=== PATIENT | male | born 1995 | race African-American/Black ===

== ENCOUNTER 2020-07-12 17:17 | Emergency (ER) | payer MEDICAID ==
[~2020-07-12] VITALS: Ht 180.3 cm; Wt 128.6 kg
[2020-07-12 17:38] VITALS: TEMP 98
[2020-07-12 18:06] LABS: BASO # 0.1 (0.0-0.2); BASO % 0.8 % (0.0-2.0); EOS # 0.1 (0.0-0.7); EOS % 2.1 % (0-4.0); GRAN # 3.3 (1.4-6.5); GRAN % 50.7 % (42.2-75.2); HEMATOCRIT 44.5 % (42.0-52.0); HEMOGLOBIN 14.1 g/dl (13.5-18.0); LYMPH # 2.4 (1.2-3.4); LYMPH % 36.6 % (20.0-51.0); MEAN CELL VOLUME 89 fl (80.0-100.0); MEAN CORPUSCULAR HEMOGLOBIN 28 pg (27.0-31.0); MEAN CORPUSCULAR HGB CONC 32 g/dl (33.0-37.0); MEAN PLATELET VOLUME 11.2 fl (7.4-10.4); MONO # 0.6 (0.1-0.6); MONO % 9.3 % (1.7-9.3); PLATELET COUNT 271 K/mm3 (130-400); RED BLOOD COUNT 4.98 M/mm3 (4.20-5.60); REDCELL DISTRIBUTION WIDTH-CV 12.8 % (11.5-14.5)
[2020-07-12 18:18] LABS: ALANINE AMINOTRANSFERASE 52 U/L (4-49); ALBUMIN 4.2 gm/dL (3.5-5.0); ALKALINE PHOSPHATASE 87 U/L (50-136); ANION GAP 5 mmol/L (7-16); AST,SGOT 43 U/L (15-37); BILIRUBIN,TOTAL 0.2 mg/dL (0.0-1.0); BLOOD UREA NITROGEN 15 mg/dL (9-20); CALCIUM 12.3 mg/dL (8.4-10.2); CARBON DIOXIDE 28 mmol/L (22-30); CHLORIDE 104 mmol/L (98-107); CREATININE, serum 0.78 (0.66-1.25); GLUCOSE 92 mg/dL (74-106); POTASSIUM 4.2 mmol/L (3.4-5.0); SODIUM 138 mmol/L (137-145); TOTAL PROTEIN 8.6 gm/dL (6.4-8.2)
[2020-07-12 18:30] LABS: TROPONIN-I < 0.012 ng/mL (0.000-0.035)
[2020-07-12 20:22] VITALS: BP 124/96; PULSE 64
== END 2020-07-12 20:35 | disposition home or self-care (01) ==
LOC: COL.ER 17:17
PROVIDERS: Physician Assistant
DX: R07.9 Chest pain, unspecified (principal); I10 Essential (primary) hypertension; Z87.891 Personal history of nicotine dependence; Z86.79 Personal history of other diseases of the circulatory system
CPT/HCPCS: J1885; J7030

== ENCOUNTER 2020-09-16 21:59 | Emergency (ER) | payer OTHER ==
[~2020-09-16] VITALS: Ht 180.3 cm; Wt 127.3 kg
[2020-09-16 22:46] VITALS: TEMP 98.7
[2020-09-17 00:31] VITALS: BP 133/81; PULSE 82
== END 2020-09-17 00:31 | disposition home or self-care (01) ==
LOC: COL.ER 21:59
DX: S83.91XA Sprain of unspecified site of right knee, initial encounter (principal); W10.8XXA Fall (on) (from) other stairs and steps, initial encounter
CPT/HCPCS: J1885

== ENCOUNTER 2020-09-24 11:46 | Emergency (ER) | payer SELFPAY ==
[~2020-09-24] VITALS: Ht 180.3 cm; Wt 136.4 kg
[2020-09-24 11:55] VITALS: TEMP 97.8
[2020-09-24] MEDS ORDERED: CILOXAN .3% EY2.5 ML OT (12:21)
[2020-09-24 12:36] VITALS: BP 139/75; PULSE 71
== END 2020-09-24 12:36 | disposition home or self-care (01) ==
LOC: COL.ER 11:46
DX: H60.92 Unspecified otitis externa, left ear (principal)

== ENCOUNTER 2020-11-11 18:42 | Emergency (ER) | payer SELFPAY ==
[~2020-11-11] VITALS: Ht 180.3 cm; Wt 132.7 kg
[~2020-11-11 18:42] MED LIST: CILOXAN .3% EY2.5 ML OT
[2020-11-11 19:12] VITALS: TEMP 98.2
[2020-11-11 19:59] LABS: BASO # 0.1 (0.0-0.2); EOS # 0.2 (0.0-0.7); EOS % 2.3 % (0-4.0); GRAN # 3.6 (1.4-6.5); HEMATOCRIT 41.9 % (42.0-52.0); HEMOGLOBIN 13.8 g/dl (13.5-18.0); LYMPH # 2.4 (1.2-3.4); LYMPH % 34.6 % (20.0-51.0); MEAN CELL VOLUME 87 fl (80.0-100.0); MEAN CORPUSCULAR HEMOGLOBIN 29 pg (27.0-31.0); MEAN CORPUSCULAR HGB CONC 33 g/dl (33.0-37.0); MEAN PLATELET VOLUME 11.1 fl (7.4-10.4); MONO # 0.7 (0.1-0.6); MONO % 9.7 % (1.7-9.3); PLATELET COUNT 366 K/mm3 (130-400); RED BLOOD COUNT 4.82 M/mm3 (4.20-5.60); REDCELL DISTRIBUTION WIDTH-CV 12.6 % (11.5-14.5)
[2020-11-11 20:10] LABS: ALANINE AMINOTRANSFERASE 57 U/L (4-49); ALBUMIN 4.2 gm/dL (3.5-5.0); ALKALINE PHOSPHATASE 81 U/L (50-136); ANION GAP 5 mmol/L (7-16); AST,SGOT 57 U/L (15-37); BILIRUBIN,TOTAL 0.2 mg/dL (0.0-1.0); BLOOD UREA NITROGEN 19 mg/dL (9-20); CALCIUM 11.7 mg/dL (8.4-10.2); CARBON DIOXIDE 27 mmol/L (22-30); CHLORIDE 106 mmol/L (98-107); CREATININE, serum 0.88 (0.66-1.25); GLUCOSE 83 mg/dL (74-106); POTASSIUM 4.4 mmol/L (3.4-5.0); SODIUM 137 mmol/L (137-145); TOTAL PROTEIN 8.3 gm/dL (6.4-8.2)
[2020-11-11 20:11] LABS: STREP SCREEN NEGATIVE
[2020-11-11 20:25] LABS: TROPONIN-I < 0.012 ng/mL (0.000-0.035)
[2020-11-11 20:35] LABS: COLLECTION METHOD CLEAN CATCH
[2020-11-11 20:54] LABS: MUCOUS Present /lpf; PH 5 (5-8); SQUAMOUS EPITHELIAL None Seen /hpf; URINE APPEARANCE Clear; URINE BACTERIA None Seen /hpf; URINE BILIRUBIN Negative (NEGATIVE); URINE BLOOD Negative (NEGATIVE); URINE COLOR Yellow; URINE GLUCOSE Negative (NEGATIVE); URINE KETONE Negative (NEGATIVE); URINE LEUKOCYTE ESTERASE Negative (NEGATIVE); URINE NITRATE Negative (NEGATIVE); URINE PROTEIN(semi-quant) Negative (NEGATIVE); URINE RBC 0-2 /hpf; URINE UROBILINOGEN Negative (NEGATIVE)
[2020-11-11] MEDS ORDERED: ATIVAN 1MG T1 MG/TAB PO (20:59)
[2020-11-11 21:05] VITALS: BP 125/82; PULSE 77
== END 2020-11-11 21:05 | disposition home or self-care (01) ==
LOC: COL.ER 18:42
PROVIDERS: Physician Assistant
DX: F41.9 Anxiety disorder, unspecified (principal); J02.9 Acute pharyngitis, unspecified; I10 Essential (primary) hypertension; Z86.16 Personal history of COVID-19
CPT/HCPCS: J2060; J2405; J7030; L4386

== ENCOUNTER 2021-03-21 13:24 | Emergency (ER) | payer SELFPAY ==
[~2021-03-21] VITALS: Ht 180.3 cm; Wt 131.8 kg
[~2021-03-21 13:24] MED LIST changes: +ATIVAN 1MG T1 MG/TAB PO
[2021-03-21 14:43] VITALS: BP 142/82; PULSE 66; TEMP 98.3
[2021-03-21] MEDS ORDERED: KAPSPARGO SPRIN25 MG PO (23:48)
[2021-03-22] MEDS ORDERED: PROTONIX 40MG T40 MG PO (01:07)
== END 2021-03-21 16:39 | disposition left against medical advice (07) ==
LOC: COL.ER 13:24
DX: R11.2 Nausea with vomiting, unspecified (principal)

== ENCOUNTER 2021-03-21 21:23 | Emergency (ER) | payer SELFPAY ==
[~2021-03-21] VITALS: Ht 180.3 cm; Wt 136.4 kg
[2021-03-21 21:54] VITALS: TEMP 98.3
[2021-03-21 23:41] LABS: BASO # 0.1 K/mm3 (0.0-0.2); BASO % 0.8 % (0.0-2.0); EOS # 0.1 K/mm3 (0.0-0.7); EOS % 1.2 % (0.0-4.0); GRAN # 5.1 K/mm3 (1.4-6.5); GRAN % 67.5 % (42.2-75.2); HEMATOCRIT 44.5 % (42.0-52.0); HEMOGLOBIN 14.6 g/dl (13.5-18.0); LYMPH # 1.9 K/mm3 (1.2-3.4); LYMPH % 24.5 % (20.0-51.0); MEAN CELL VOLUME 87 fl (80.0-100.0); MEAN CORPUSCULAR HEMOGLOBIN 29 pg (27-31); MEAN CORPUSCULAR HGB CONC 33 g/dl (33.0-37.0); MEAN PLATELET VOLUME 11.1 fl (7.4-10.4); MONO # 0.4 K/mm3 (0.1-0.6); MONO % 5.7 % (1.7-9.3); PLATELET COUNT 293 K/mm3 (130-400); RED BLOOD COUNT 5.12 M/mm3 (4.20-5.60); REDCELL DISTRIBUTION WIDTH-CV 12.2 % (11.5-14.5)
[2021-03-21] MEDS ORDERED: KAPSPARGO SPRIN25 MG PO (23:48)
[2021-03-22 00:03] LABS: ALBUMIN 4.1 gm/dL (3.5-5.0); BILIRUBIN,TOTAL 0.4 mg/dL (0.2-1.2); C-REACTIVE PROTEIN 0.8 mg/dL (0.00-0.50); CALCIUM 12.2 mg/dL (8.4-10.2); CREATININE, serum 1.05 mg/dL (0.72-1.25); POTASSIUM 3.8 mmol/L (3.5-4.5); TOTAL PROTEIN 8.1 gm/dL (6.2-8.1)
[2021-03-22 00:35] LABS: COLLECTION METHOD CLEAN CATCH
[2021-03-22] MEDS ORDERED: PROTONIX 40MG T40 MG PO (01:07)
[2021-03-22 01:08] LABS: MUCOUS Present (NOT PRESENT); PH 5 (5-8); SQUAMOUS EPITHELIAL 0-2 /hpf (0-10); URINE APPEARANCE Clear (CLEAR/HAZY); URINE BACTERIA None Seen /hpf (NONE SEEN); URINE BILIRUBIN Negative (NEGATIVE); URINE BLOOD Negative (NEGATIVE); URINE COLOR Yellow (YELLOW); URINE GLUCOSE Negative (NEGATIVE); URINE KETONE Negative (NEGATIVE); URINE LEUKOCYTE ESTERASE Negative (NEGATIVE); URINE NITRATE Negative (NEGATIVE); URINE PROTEIN(semi-quant) Negative (NEGATIVE); URINE RBC 0-2 /hpf (0-2)
[2021-03-22 01:21] VITALS: BP 117/68; PULSE 78
== END 2021-03-22 01:21 | disposition home or self-care (01) ==
LOC: COL.ER 21:23
PROVIDERS: Nurse Practitioner Primary Care
DX: R12 Heartburn (principal); Z95.818 Presence of other cardiac implants and grafts; Z87.891 Personal history of nicotine dependence
CPT/HCPCS: J2405; J7030

== ENCOUNTER 2022-06-22 09:45 | Emergency (ER) | payer SELFPAY ==
[~2022-06-22] VITALS: Ht 180.3 cm; Wt 150.0 kg
[~2022-06-22 09:45] MED LIST changes: +KAPSPARGO SPRIN25 MG PO; +PROTONIX 40MG T40 MG PO
[2022-06-22 10:21] VITALS: TEMP 98.2
[2022-06-22] MEDS ORDERED: FLEXERIL 1010 MG/TAB PO (11:05)
[2022-06-22 11:42] VITALS: BP 153/106; PULSE 64
== END 2022-06-22 11:42 | disposition home or self-care (01) ==
LOC: COL.ER 09:45
DX: S83.92XA Sprain of unspecified site of left knee, initial encounter (principal); S23.3XXA Sprain of ligaments of thoracic spine, initial encounter; Z28.310 Unvaccinated for COVID-19; V89.2XXA Person injured in unspecified motor-vehicle accident, traffic, initial encounter; Y92.410 Unspecified street and highway as the place of occurrence of the external cause
CPT/HCPCS: J1885; J2360

== ENCOUNTER 2023-09-09 17:00 | Emergency (ER) | payer SELFPAY ==
[~2023-09-09] VITALS: Ht 180.3 cm; Wt 163.6 kg
[~2023-09-09 17:00] MED LIST changes: +AMOXICILLIN875 MG PO; +FLEXERIL 1010 MG/TAB PO; +NAPROSYN500 MG PO; +PERIDEX (CHLOR480 ML MM
[2023-09-09] MEDS ORDERED: Ondansetron 4 MG/2 ML VIAL IV ONE (18:15)
[2023-09-09] MEDS ORDERED: NS 1,000 ML IV ONE (18:15)
[2023-09-09] MEDS ORDERED: Morphine 4 MG/ML VIAL IV PRN (18:15)
[2023-09-09 18:19] LABS: BASO # 0.1 K/mm3 (0.0-0.2); BASO % 0.9 % (0.0-2.0); EOS # 0.3 K/mm3 (0.0-0.7); EOS % 3.2 % (0.0-4.0); GRAN # 4.1 K/mm3 (1.4-6.5); GRAN % 50.8 % (42.2-75.2); HEMATOCRIT 42.4 % (42.0-52.0); HEMOGLOBIN 13.5 g/dl (13.5-18.0); LYMPH # 2.9 K/mm3 (1.2-3.4); LYMPH % 36.5 % (20.0-51.0); MEAN CELL VOLUME 89 fl (80.0-100.0); MEAN CORPUSCULAR HEMOGLOBIN 28 pg (27-31); MEAN CORPUSCULAR HGB CONC 32 g/dl (33.0-37.0); MEAN PLATELET VOLUME 10.8 fl (7.4-10.4); MONO # 0.7 K/mm3 (0.1-0.6); MONO % 8.2 % (1.7-9.3); PLATELET COUNT 313 K/mm3 (130-400); RED BLOOD COUNT 4.79 M/mm3 (4.20-5.60); REDCELL DISTRIBUTION WIDTH-CV 12.7 % (11.5-14.5)
[2023-09-09 18:24] LABS: PROTHROMBIN TIME 11.1 SECONDS (9.7-12.8)
[2023-09-09 18:26] LABS: PARTIAL THROMBOPLASTIN TIME 36.7 SECONDS (26.0-37.0)
[2023-09-09 18:33] LABS: D-DIMER < 200.00 ng/mLDDu (200-230)
[2023-09-09 18:40] LABS: ALANINE AMINOTRANSFERASE 32 U/L (0-55); ALBUMIN 3.7 g/dL (3.5-5.0); ALKALINE PHOSPHATASE 79 U/L (40-150); ANION GAP 9 mmol/L (7-16); AST,SGOT 23 U/L (5-34); BILIRUBIN,TOTAL 0.3 mg/dL (0.2-1.2); BLOOD UREA NITROGEN 18 mg/dL (9-21); CALCIUM 12.5 mg/dL (8.4-10.2); CHLORIDE 105 mEq/L (98-107); CREATININE, serum 0.98 mg/dL (0.72-1.25); GLUCOSE 79 mg/dL (70-99); LIPASE 25 U/L (8-78); POTASSIUM 4.2 mEq/L (3.5-4.5); SODIUM 139 mEq/L (136-145); TOTAL PROTEIN 7.9 g/dl (6.2-8.1)
[2023-09-09 18:46] LABS: TROPONIN-I < 0.010 ng/mL (0.00-0.033)
[2023-09-09] MEDS ORDERED: Ketorolac 30 MG/ML VIAL IV ONE (19:15)
[2023-09-09] MEDS ORDERED: NAPROSYN500 MG PO (20:33)
[2023-09-09 20:55] VITALS: BP 119/75; PULSE 74; TEMP 98.2
== END 2023-09-09 20:55 | disposition short-term general hospital (02) ==
LOC: COL.ER 17:00
PROVIDERS: Nurse Practitioner Family
DX: R07.89 Other chest pain (principal); R11.2 Nausea with vomiting, unspecified; R53.81 Other malaise
CPT/HCPCS: J1885; J2270; J2405; J7030